=== PATIENT | male | born 1970 | race Caucasian/White ===

== ENCOUNTER 2019-04-27 12:30 | Day surgery (SDC) | payer BC ==
[2019-04-27] MEDS ORDERED: PROPOFOL 10 MG/ML VIAL IV ONE (12:31)
[2019-04-27] MEDS ORDERED: LIDOCAINE 2% MDV (20MG/ML) 20ML VIAL IV ONE (12:31)
[2019-04-27] MEDS ORDERED: FENTANYL PF 100MCG/2ML VIAL IV ONE (12:31)
--- NOTE | 2019-04-28 18:21 | Operative Note ---
OPERATION: ESOPHAGOGASTRODUODENOSCOPY with biopsy. PREOPERATIVE DIAGNOSIS: Chronic sore throat of unclear etiology. POSTOPERATIVE DIAGNOSES: 1. Questionable base of tongue irregularity. 2. Duodenal polyp. PROCEDURE: After informed consent was obtained from the patient, he was placed in the left lateral decubitus position in the endoscopy suite, sedated and monitored by the department of anesthesia. Once sedated, a well-lubricated [id number] gastroscope was placed in the posterior oropharynx and advanced to the oropharynx. The base of the tongue appeared irregularly contoured and prominent and unclear significance of the finding. Photographs were taken. Some of the irregularity appeared to almost abut the epiglottis. There were no obvious epiglottic abnormalities or obvious vocal cord irregularities that were readily visualized on cursory evaluation. The endoscope was then advanced to the proximal, mid, and distal esophagus, which were unremarkable. The GE junction, gastric body, and antrum were unremarkable. The pylorus was cannulated revealing normal duodenal bulb. In the duodenal sweep, there was a diminutive nodule/papule of unclear significance. This was essentially removed with a cold forceps. J-turn views of the proximal stomach were unremarkable. The endoscope was straightened and retracted from the patient. Additional photographs were taken of the oropharynx. The endoscope removed from the patient. RECOMMENDATIONS: I would suggest the patient be seen by ENT to evaluate the irregularity of the tongue base. This may be a normal variant or benign issue but given the persistence of his symptoms, would like further input from an ENT specialist. As always, thank you for allowing me to participate in the healthcare of your patients. DAVID
== END 2019-04-27 14:15 | disposition home or self-care (01) ==
LOC: HOP 12:30
PROVIDERS: ATTEND Internal Medicine Gastroenterology
DX: J02.9 Acute pharyngitis, unspecified (principal); R09.89 Other specified symptoms and signs involving the circulatory and respiratory systems; K14.9 Disease of tongue, unspecified; K31.7 Polyp of stomach and duodenum; I10 Essential (primary) hypertension; E78.00 Pure hypercholesterolemia, unspecified
CPT/HCPCS: 43239; 00731; J3010